=== PATIENT | female | born 1940 | race Caucasian/White ===

== ENCOUNTER 2016-08-19 15:15 | Emergency (ER) | payer MEDICARE, OTHER ==
[2016-08-19 12:06] LABS: BASOPHILS 0.2 %; BASOPHILS ABSOLUTE 0.01 10/3/uL (0.0-0.16); EOSINOPHILS 1.5 %; EOSINOPHILS ABSOLUTE 0.09 10/3/uL (0.0-0.53); HEMATOCRIT 32.9 % (36.0-48.0); IMMATURE GRANULOCYTES 0.2 %; IMMATURE GRANULOCYTES ABSOLUTE 0.01 10/3/uL (0.0-0.11); LYMPHOCYTES ABSOLUTE 2.54 10/3/uL (0.67-4.30); MEAN CORPUS HGB CONC 33.4 g/dL (32.0-36.0); MEAN CORPUSCULAR HEMOGLOB 29.9 pg (26.0-34.0); MEAN CORPUSCULAR VOLUME 89.4 fL (80-100); MEAN PLATELET VOLUME 8.5 fL (9.2-13.0); MONOCYTES 6.6 %; MONOCYTES ABSOLUTE 0.39 10/3/uL (0.21-1.20); NEUTROPHILS 48.5 %; NEUTROPHILS ABSOLUTE 2.87 10/3/uL (2.02-8.40); PLATELET COUNT 417 10/3/uL (150-400); RBC DISTRIBUTION WIDTH 13.6 % (12.0-16.0); RED CELL COUNT 3.68 10/6/uL (4.0-5.6); WHITE BLOOD CELLS 5.9 10/3/uL (4.5-10.5)
[2016-08-19 12:09] LABS: MANUAL DIFF NO %
[2016-08-19 12:15] LABS: INTERNATIONAL NORMAL RATI 1.1 UNITS (-); PARTIAL THROMBO TIME 33.7 SEC (22.5-37.2); PROTIME (NOT ORD) 14.2 SEC (12.0-14.5)
[2016-08-19 12:22] LABS: BUN (BLOOD UREA NITROGEN) 14 MG/DL (6-23); CALCIUM, SERUM 9.2 MG/DL (8.5-10.4); CHEST PAIN PROFILE TAT 0 Hrs 22 Mins; CHLORIDE, SERUM 102 MMOL/L (96-112); CO2 (CARBON DIOXIDE) 27 MMOL/L (24-34); CREATININE 1.17 MG/DL (0.55-1.02); GFR AFRICAN AMERICAN 52 ML/MIN (>=60); GFR NON AFRICAN AMERICAN 45 ML/MIN (>=60); SODIUM, SERUM 138 MMOL/L (135-148); TROPONIN I <0.02 NG/ML (<0.05)
[2016-08-19 12:23] LABS: GLUCOSE, SERUM 107 MG/DL (60-99); POTASSIUM, SERUM 3.8 MMOL/L (3.5-5.3)
[2016-09-19] MEDS ORDERED: FOSAMAX70 MG PO (11:03)
[2016-09-19] MEDS ORDERED: FISH-EPA1000 MG PO (11:03)
[2016-09-19] MEDS ORDERED: ASAB PO (11:03)
[2016-09-19] MEDS ORDERED: LEVOTHYROXIN50 MCG PO (11:04)
[2016-09-19] MEDS ORDERED: PRILO PO (11:05)
[2016-09-19] MEDS ORDERED: SYMBICORT 80/4.1 INH INH (11:06)
[2016-09-19] MEDS ORDERED: ARANESP40 SC (11:07)
[2016-09-19] MEDS ORDERED: LOFIB160 PO (11:08)
[2016-09-19] MEDS ORDERED: LIPITOR40 PO (11:08)
[2016-09-19] MEDS ORDERED: CALCIUM PO (11:09)
[2016-09-19] MEDS ORDERED: KLOR-CON M2020 MEQ PO (11:10)
[2016-09-19] MEDS ORDERED: FLONASE NAS (11:10)
[2016-09-19] MEDS ORDERED: MAGOX4 PO (11:11)
[2016-09-19] MEDS ORDERED: VITAMIN D31000 UNIT PO (11:11)
[2016-09-19] MEDS ORDERED: LOTE40 PO (11:12)
[2016-09-19] MEDS ORDERED: 8 HOUR650 MG PO (11:15)
[2016-09-19] MEDS ORDERED: SINGULAIR1 PO (11:15)
[2017-01-21] MEDS ORDERED: VITAMIN B 12 INJECT IJ (14:31)
[2017-01-21] MEDS ORDERED: MAGNESIUM (14:41)
[2017-01-21] MEDS ORDERED: KLOR-CON M2020 MEQ PO (14:43)
== END 2016-08-19 15:32 | disposition home or self-care (01) ==
LOC: ER 15:15
PROVIDERS: Emergency Medicine
DX: M79.602 Pain in left arm (principal); J45.909 Unspecified asthma, uncomplicated; N18.9 Chronic kidney disease, unspecified; K21.9 Gastro-esophageal reflux disease without esophagitis; Z87.891 Personal history of nicotine dependence; Z88.0 Allergy status to penicillin; Z88.5 Allergy status to narcotic agent
CPT/HCPCS: 71020; 80048; 83735; 84484; 85025; 85610; 85730; 93005; 99285

== ENCOUNTER 2016-09-25 12:40 | Day surgery (SDC) | payer MEDICARE, OTHER ==
--- NOTE | ~2016-09-25 | EGD ---
EGD REPORT [facility] [address] [place] [address] NAME: LELE CHAMBERS : [birth year] STATUS : [facility]#: [id number] AGE: 75 ADM/REG DATE : 09/25/16 MR#: [id number] REPORT SERV DATE: 09/25/16 DICTATED BY: BOBBY HOWARD DATE: 09/25/16 REPORT STATUS : Draft TRANSCRIBED BY: [facility] DATE: 09/25/16 [facility] Center Patient Name: Lele Chambers Date of : 1940 Attending MD: BOBBY HOWARD MD Procedure Date No Time: 09/25/2016 Procedure: Upper GI endoscopy Indications: Nausea, Weight loss Referring MD: DE QUIROZ Medicines: See the Anesthesia note for documentation of the administered medications Complications: No immediate complications. Procedure: Pre-Anesthesia Assessment: - ASA Grade Assessment: III - A patient with severe systemic disease. After obtaining informed consent, the endoscope was passed under direct vision. Throughout the procedure, the patient's blood pressure, pulse, and oxygen saturations were monitored continuously. The GIF [id number] was introduced through the mouth, and advanced to the second part of duodenum. The upper GI endoscopy was accomplished without difficulty. The patient tolerated the procedure well. Findings: The examined duodenum was normal. The 2nd part of the duodenum was normal. Biopsies were taken with a cold forceps for histology. The gastric antrum was normal. Biopsies were taken with a cold forceps for histology. The cardia and gastric fundus were normal on retroflexion. A small hiatus hernia was present. Impression: - Normal examined duodenum. - Normal 2nd part of the duodenum. Biopsied. - Normal antrum. Biopsied. - Hiatus hernia. Recommendation: - Patient has a contact number available for emergencies. The signs and symptoms of potential delayed complications were discussed with the patient. Return to normal activities tomorrow. Written discharge instructions were provided to the patient. - Regular diet. - Continue present medications. EGD REPORT [address] [place]. [address] NAME: LELE CHAMBERS : [birth year] STATUS : [facility]#: [id number] AGE: 75 ADM/REG DATE : 09/25/16 MR#: [id number] REPORT SERV DATE: 09/25/16 DICTATED BY: BOBBY HOWARD DATE: 09/25/16 REPORT STATUS : Draft TRANSCRIBED BY: [employer] DATE: 09/25/16 - FOR YOUR BIOPSY RESULTS: Please go to [email or web address] and register to receive your results via the portal. Your biopsy results will be posted there in about 7 to 10 days. IF you do not see result in 10 days, call office. - Follow up with Dr Howard or his nurse practitioner in 6 weeks Procedure Code(s): --- Professional --- 24108, Esophagogastroduodenoscopy, flexible, transoral; with biopsy, single or multiple Diagnosis Code(s): --- Professional --- K44.9, Diaphragmatic hernia without obstruction or gangrene R11.0, Nausea R63.4, Abnormal weight loss CPT copyright 2013 [employer]. All rights reserved. The codes documented in this report are preliminary and upon crew leader/control room operator review may be revised to meet current compliance requirements. Bobby Howard MD BOBBY HOWARD MD 09/25/2016 2:18 PM This report has been signed electronically. Number of Addenda: 0 Note Initiated On: 09/25/2016 2:04 PM Scope Withdrawal Time 0 hours 0 minutes 0 seconds [address] [place] [id number]
[~2016-09-25 12:40] MED LIST: 8 HOUR650 MG PO; ARANESP40 SC; ASAB PO; CALCIUM PO; FISH-EPA1000 MG PO; FLONASE NAS; FOSAMAX70 MG PO; KLOR-CON M2020 MEQ PO; LEVOTHYROXIN50 MCG PO; LIPITOR40 PO; LOFIB160 PO; LOTE40 PO; MAGOX4 PO; PRILO PO; SINGULAIR1 PO; SYMBICORT 80/4.1 INH INH; VITAMIN D31000 UNIT PO
[2017-01-21] MEDS ORDERED: VITAMIN B 12 INJECT IJ (14:31)
[2017-01-21] MEDS ORDERED: MAGNESIUM (14:41)
[2017-01-21] MEDS ORDERED: KLOR-CON M2020 MEQ PO (14:43)
== END 2016-09-25 23:59 | disposition home or self-care (01) ==
LOC: DMU 12:40
PROVIDERS: Internal Medicine Gastroenterology
PROC: 0DB78ZX Excision of Stomach, Pylorus, Via Natural or Artificial Opening Endoscopic, Diagnostic (ICD-10-PCS; 2016-09-25)
PROC: 0DB98ZX Excision of Duodenum, Via Natural or Artificial Opening Endoscopic, Diagnostic (ICD-10-PCS; principal; 2016-09-25 14:30)
DX: K44.9 Diaphragmatic hernia without obstruction or gangrene (principal); R11.0 Nausea; R68.81 Early satiety; R63.4 Abnormal weight loss; Z68.25 Body mass index [BMI] 25.0-25.9, adult; I10 Essential (primary) hypertension; E78.00 Pure hypercholesterolemia, unspecified; E03.9 Hypothyroidism, unspecified; J45.909 Unspecified asthma, uncomplicated; G43.909 Migraine, unspecified, not intractable, without status migrainosus; M19.90 Unspecified osteoarthritis, unspecified site; D64.9 Anemia, unspecified; F32.9 Major depressive disorder, single episode, unspecified; Z91.81 History of falling; Z88.0 Allergy status to penicillin; Z88.1 Allergy status to other antibiotic agents; Z88.5 Allergy status to narcotic agent; Z79.83 Long term (current) use of bisphosphonates; Z79.82 Long term (current) use of aspirin; Z79.51 Long term (current) use of inhaled steroids; Z79.899 Other long term (current) drug therapy; Z98.41 Cataract extraction status, right eye; Z98.42 Cataract extraction status, left eye; Z96.1 Presence of intraocular lens; Z98.51 Tubal ligation status; Z90.710 Acquired absence of both cervix and uterus; Z98.890 Other specified postprocedural states; Z90.49 Acquired absence of other specified parts of digestive tract; Z97.2 Presence of dental prosthetic device (complete) (partial); Z87.01 Personal history of pneumonia (recurrent); Z87.891 Personal history of nicotine dependence
CPT/HCPCS: 88305